=== PATIENT | female | born 1995 | race African-American/Black ===

== ENCOUNTER 2018-04-04 17:54 | Emergency (ER) | payer OTHER ==
[~2018-04-04] VITALS: Ht 160 cm; Wt 70.8 kg
[~2018-04-04 17:54] MED LIST: MACROBID 100 M100 M1 PO; ZOFRAN ODT4 MG PO
[2018-04-04 18:27] LABS: URINE BILIRUBIN NEGATIVE (Negative); URINE BLOOD TRACE (Negative); URINE CLARITY CLEAR; URINE COLOR YELLOW; URINE GLUCOSE-RANDOM* NEGATIVE (Negative); URINE KETONES NEGATIVE (Negative); URINE NITRITE-REFLEX NEGATIVE (Negative); URINE PROTEIN (DIPSTICK) NEGATIVE (Negative); URINE UROBILINOGEN 0.2 E.U./dl (0.2-1.0)
[2018-04-04 18:28] LABS: URINE LEUKOCYTES-REFLEX 2+ (Negative)
[2018-04-04 18:36] LABS: CASTS None Seen /LPF (None Seen); SQUAMOUS >10 Many /LPF (0-3)
[2018-04-04 18:39] LABS: BACTERIA-REFLEX 1-9 Few /HPF (None Seen); CRYSTALS None Seen /LPF (None Seen); URINE RBC 0-2 Rare /HPF (0-2); URINE WBC-REFLEX 6-15 Few /HPF (0-5)
[2018-04-04] MEDS ORDERED: FLAGYL500 MG PO (19:14)
[2018-04-04 19:28] VITALS: BP 138/82
== END 2018-04-04 19:29 | disposition home or self-care (01) ==
LOC: ER 17:54
PROVIDERS: Physician Assistant
DX: A59.9 Trichomoniasis, unspecified (principal); Z20.2 Contact with and (suspected) exposure to infections with a predominantly sexual mode of transmission

== ENCOUNTER 2018-07-08 05:44 | Emergency (ER) | payer OTHER ==
[~2018-07-08] VITALS: Ht 160 cm; Wt 62.6 kg
[~2018-07-08 05:44] MED LIST changes: +FLAGYL500 MG PO
[2018-07-08] MEDS ORDERED: PRENATAL PO (06:21)
[2018-07-08] MEDS ORDERED: ONDANSETRON HCL4 M2 PO (06:22)
[2018-07-08 06:23] LABS: URINE BILIRUBIN NEGATIVE (Negative); URINE BLOOD TRACE (Negative); URINE CLARITY CLEAR; URINE COLOR YELLOW; URINE GLUCOSE-RANDOM* NEGATIVE (Negative); URINE KETONES 2+ (Negative); URINE LEUKOCYTES-REFLEX NEGATIVE (Negative); URINE NITRITE-REFLEX NEGATIVE (Negative); URINE PROTEIN (DIPSTICK) TRACE (Negative); URINE SPECIFIC GRAVITY 1.025 (1.005-1.035); URINE UROBILINOGEN 0.2 E.U./dl (0.2-1.0)
[2018-07-08 06:24] LABS: ABSOLUTE NEUTROPHILS 7.4 thou/uL (1.4-8.2); BASOPHILS 0.4 % (0.0-2.0); EOSINOPHILS 1.9 % (0.0-3.0); HEMATOCRIT 37.7 % (37.0-47.0); HEMOGLOBIN 12.5 gm/dL (12.0-15.0); LYMPHOCYTES 20.7 % (24.0-44.0); MCH 27.2 pg (26.0-34.0); MCHC 33.2 g/dL (28.0-37.0); PLATELET COUNT 332 thou/uL (150-400); RBC 4.59 mil/uL (4.20-5.00); RDW 13.2 % (10.5-14.5); WBC 10.6 thou/uL (4.0-11.0)
[2018-07-08 06:31] LABS: CALCIUM 10.4 mg/dL (8.5-10.1); CREATININE 0.8 mg/dL (0.6-1.0); POTASSIUM 3.3 mmol/L (3.5-5.1)
[2018-07-08 09:10] VITALS: BP 94/52
== END 2018-07-08 09:10 | disposition home or self-care (01) ==
LOC: ER 05:44
PROVIDERS: Student in an Organized Health Care Education/Training Program
DX: O21.0 Mild hyperemesis gravidarum (principal); R19.7 Diarrhea, unspecified; Z3A.00 Weeks of gestation of pregnancy not specified

== ENCOUNTER 2020-07-22 22:21 | Emergency (ER) | payer OTHER ==
[~2020-07-22] VITALS: Ht 154.9 cm; Wt 68.0 kg
[~2020-07-22 22:21] MED LIST changes: +ONDANSETRON HCL4 M2 PO; +PRENATAL PO
[2020-07-22 22:28] VITALS: BP 124/55
[2020-07-22 23:10] LABS: URINE BILIRUBIN NEGATIVE (Negative); URINE BLOOD 1+ (Negative); URINE CLARITY CLOUDY; URINE COLOR YELLOW; URINE GLUCOSE-RANDOM* NEGATIVE (Negative); URINE KETONES TRACE (Negative); URINE LEUKOCYTES-REFLEX 1+ (Negative); URINE NITRITE-REFLEX POSITIVE (Negative); URINE PROTEIN (DIPSTICK) 2+ (Negative); URINE SPECIFIC GRAVITY >= 1.030 (1.005-1.035)
[2020-07-22 23:24] LABS: BACTERIA-REFLEX >30 Many /HPF (None Seen); CASTS None Seen /LPF (None Seen); CRYSTALS None Seen /LPF (None Seen); MUCUS 4-6 Moderate strn/LPF (None Seen); SQUAMOUS 4-10 Moderate /LPF (0-3); TRANSITIONAL EPITHEL CELL 0-3 Few /LPF (None Seen); URINE RBC >20 Many /HPF (0-2)
[2020-07-22] MEDS ORDERED: MACROBID 100 M100 M1 PO (23:29)
[2020-07-22] MEDS ORDERED: PYRIDIUM200 MG PO (23:29)
== END 2020-07-22 23:50 | disposition home or self-care (01) ==
LOC: ER 22:21
PROVIDERS: Emergency Medicine
DX: N39.0 Urinary tract infection, site not specified (principal)

== ENCOUNTER 2020-08-19 13:06 | Emergency (ER) | payer OTHER ==
[~2020-08-19] VITALS: Ht 154.9 cm; Wt 64.4 kg
[~2020-08-19 13:06] MED LIST changes: +PYRIDIUM200 MG PO
[2020-08-19 13:40] LABS: ABSOLUTE NEUTROPHILS 3.8 thou/uL (1.4-8.2); BASOPHILS 0.4 % (0.0-2.0); EOSINOPHILS 2.9 % (0.0-3.0); HEMATOCRIT 37.9 % (37.0-47.0); HEMOGLOBIN 12.3 gm/dL (12.0-15.0); LYMPHOCYTES 31.1 % (24.0-44.0); MCH 27.6 pg (26.0-34.0); MCHC 32.6 g/dL (28.0-37.0); MCV 84.8 fL (80.0-100.0); MONOCYTES 8.3 % (1.0-8.0); PLATELET COUNT 284 thou/uL (150-400); POLYS 57.3 % (36.0-66.0); RBC 4.47 mil/uL (4.20-5.00); RDW 14.2 % (10.5-14.5); WBC 6.7 thou/uL (4.0-11.0)
[2020-08-19 13:49] LABS: ANION GAP 8 mmol/L (7-16); BUN 12 mg/dL (7-18); CHLORIDE 105 mmol/L (98-107); CO2 26 mmol/L (21-32); CREATININE 0.8 mg/dL (0.6-1.0); GLUCOSE 86 mg/dL (74-106); POTASSIUM 3.9 mmol/L (3.5-5.1); SODIUM 139 mmol/L (136-145)
[2020-08-19 13:51] LABS: URINE BILIRUBIN NEGATIVE (Negative); URINE BLOOD NEGATIVE (Negative); URINE CLARITY CLEAR; URINE COLOR YELLOW; URINE GLUCOSE-RANDOM* NEGATIVE (Negative); URINE KETONES NEGATIVE (Negative); URINE LEUKOCYTES-REFLEX TRACE (Negative); URINE NITRITE-REFLEX NEGATIVE (Negative); URINE PROTEIN (DIPSTICK) NEGATIVE (Negative); URINE UROBILINOGEN 0.2 E.U./dl (0.2-1.0)
[2020-08-19 13:58] LABS: TROPONIN-I <0.06 ng/mL (<0.06)
[2020-08-19] MEDS ORDERED: MELOXICAM15 MG PO (14:14)
[2020-08-19 14:24] VITALS: BP 131/70
--- NOTE | 2020-08-20 07:45 | EKG ---
[facility] [place] [address] ELECTROCARDIOGRAM REPORT Name: JEFFREY WATKINS Room #: [facility]#: [id number] Admission: 08/19/20 Attend Phys: Discharge: 08/19/20 Date of : [birth year] Report #: [id number] THIS REPORT FOR: cc: [facility] - Clinic physician unknown [facility] - Clinic physician unknown Ben Zapata MD [facility] ~ THIS REPORT FOR: //name// [facility] ED Test Date: 2020-08-19 Test Time: 13:15:33 Pat Name: JEFFREY WATKINS Department: Room: Gender: F Field Contact Technician: ESHEETS : 1995 Requested By: Elijah Elliott Order Number: [id number] MD: Ben Zapata Measurements Intervals [place] Rate: 78 P: -6 SC: 165 QRS: 58 QRSD: 87 T: 37 QT: 358 QTc: 408 Interpretive Statements Sinus rhythm ST elev, probable normal early repol pattern No previous ECG available for comparison Electronically Signed On 08-20-2020 7:45:30 MACHINE SETTER by Ben Zapata [email or web address] <ELECTRONICALLY SIGNED> By: Ben Zapata MD, FAC 08/20/20 0745 1315 Ben Zapata MD, [facility] /EPI
== END 2020-08-19 14:32 | disposition home or self-care (01) ==
LOC: ER 13:06
PROVIDERS: Nurse Practitioner
DX: M94.0 Chondrocostal junction syndrome [Tietze] (principal)

== ENCOUNTER 2021-05-11 16:50 | Emergency (ER) | payer OTHER ==
[~2021-05-11] VITALS: Ht 154.9 cm; Wt 68.0 kg
[~2021-05-11 16:50] MED LIST changes: +MELOXICAM15 MG PO
[2021-05-11 16:52] VITALS: BP 126/76
== END 2021-05-11 17:59 | disposition home or self-care (01) ==
LOC: ER 16:50
DX: J06.9 Acute upper respiratory infection, unspecified (principal)